=== PATIENT | male | born 1950 | race Asian ===

== ENCOUNTER 2021-06-17 06:43 | Emergency (ER) | payer OTHER ==
[~2021-06-17] VITALS: Ht 172.7 cm; Wt 81.6 kg
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
[2021-06-17] MEDS ORDERED: IBUP-1957 PO (07:22)
[2021-06-17 08:08] VITALS: BP 152/80
--- NOTE | 2021-06-17 08:08 | NUR ---
Patient discharged to home in stable condition. Written and verbal after care instructions given. Patient verbalizes understanding of instruction.
== END 2021-06-17 08:09 | disposition home or self-care (01) ==
LOC: ER 06:45
DX: S80.12XA Contusion of left lower leg, initial encounter (principal); R07.89 Other chest pain; V49.69XA Unspecified car occupant injured in collision with other motor vehicles in traffic accident, initial encounter; Y93.89 Activity, other specified; Y92.413 State road as the place of occurrence of the external cause; Y99.8 Other external cause status
CPT/HCPCS: 71045-TC